=== PATIENT | female | born 1980 | race Caucasian/White ===

== ENCOUNTER 2017-07-10 22:21 | Emergency (ER) | payer OTHER ==
[~2017-07-10] VITALS: Ht 167.6 cm; Wt 73.2 kg
[~2017-07-10 22:21] MED LIST: ZLF50 PO
[2017-07-10 22:25] VITALS: TEMP 36.8; Ht 167.6 cm; Wt 73.2 kg
[2017-07-10] MEDS ORDERED: ONDANSETRON INJ 2 MG/ML 2 ML VIAL IV STA (23:00)
[2017-07-10] MEDS ORDERED: SODIUM CHLORIDE 0.9% 1000ML 1,000 ML IV ONE (23:00)
[2017-07-10] MEDS ORDERED: SERT-234 PO (23:07)
[2017-07-10] MEDS ORDERED: MELO15TA4 PO (23:07)
[2017-07-10] MEDS ORDERED: QUET1TAB37 PO (23:07)
[2017-07-10] MEDS ORDERED: HYDR25CA PO (23:07)
[2017-07-10 23:21] LABS: URINE APPEARANCE TURBID (CLEAR); URINE BILIRUBIN NEG (NEG); URINE COLOR DK YELLOW; URINE EPITHELIAL CELL AUTO >30 /lpf (0-5); URINE NITRITE NEG (NEG); URINE PH 7.5 (4.5-7.5); URINE SPECIFIC GRAVITY 1.032 (1.000-1.030); UROBILINOGEN NEG (NEG); ZZUR CULT IF INDIC CLEAN CATCH YES
[2017-07-10 23:28] LABS: MANUAL MICROSCOPIC REQUIRED? NO; REVIEW REQ? YES; SULFASALICYLIC ACID POS (NEG)
[2017-07-10] MEDS ORDERED: CEFTRIAXONE SOD INJ 1 GM ADDVIAL IV STA (23:30)
[2017-07-10 23:40] LABS: BASO % 0.1 %; BASO ABS # 0.01 K/uL (0-0.2); COMPLETE YES; EOS % 0.1 %; HEMATOCRIT 39.5 % (37-47); IG% 0.1 %; LYMPH % 19.1 %; LYMPH ABS # 2.02 K/uL (1.2-3.4); MEAN CELL VOLUME 92.9 fL (80-100); MEAN CORPUSCULAR HEMOGLOBIN 31.1 pg (25-34); MEAN CORPUSCULAR HGB CONC 33.4 g/dl (32-36); MEAN PLATELET VOLUME 9.9 fL (7.4-10.4); NEUT % 71.6 %; PLATELET COUNT 319 K/uL (130-400); RED BLOOD COUNT 4.25 M/uL (4.2-5.4); WHITE BLOOD COUNT 10.59 K/uL (4.8-10.8)
[2017-07-10 23:56] LABS: BUN/CREATININE RATIO 12.9 (10-20); CALCIUM 9.1 mg/dl (8.5-10.1); CREATININE 0.75 mg/dl (0.60-1.20); POTASSIUM 3.1 mmol/L (3.5-5.1)
[2017-07-10 23:57] LABS: BENZODIAZEPINE, URINE NEG (NEG); COCAINE,URINE POS (NEG); PHENCYCLIDINE, URINE NEG (NEG)
[2017-07-10 23:59] LABS: ALB/GLOB RATIO 0.9 (0.9-2)
[2017-07-11] MEDS ORDERED: CEFD300C2 PO (00:26)
[2017-07-11 00:42] VITALS: BP 108/70; PULSE 76; O2SAT 96
--- NOTE | 2017-07-11 02:11 | EMERGENCY ROOM VISIT NOTE ---
History First contact with patient: 22:48 Chief Complaint: ABDOMINAL PAIN Stated Complaint: ABD PAIN Nursing Triage Summary: refer to triage note History of Present Illness The patient is a 36 year old female who presents to the Emergency Room with complaints of generalized abdominal pain and dysuria for the past one to 2 weeks. The patient states that she was recently treated for a urinary tract infection and completed her antibiotics for 5 days ago. She states that she felt well after the antibiotics and for 2 days following. Afterwards she began having return of her symptoms. The patient rates her overall discomfort 7/10. She has not had fever or chills. She is able to eat and drink as normal, although she does have nausea without vomiting. The patient is currently staying with a friend, as she is without a primary residence of her own. The patient has a history of polypharmacy drug abuse. Review of Systems More than 10 systems were reviewed and otherwise negative with the exception of history of present illness. Past Medical/Surgical History Medical Problems: (1) Benzodiazepine abuse (2) Cannabis abuse (3) Cocaine abuse (4) Kidney stones (5) Methamphetamine abuse (6) Migraines (7) Nicotine abuse (8) Opiate abuse, continuous (9) Past Psych Meds (10) Tubal ligation (11) UTI Surgical Problems: (1) History of open heart surgery Family History Cancer Kidney disease Social History Smoking Status: Current Every Day Smoker Alcohol Use: none Drug Use: cocaine, marijuana, other (methamphetamine abuse) Marital Status: single Occupation Status: employed Current/Historical Medications Scheduled Cefdinir (Omnicef), 300 MG PO Q12H Meloxicam (Mobic), 15 MG PO DAILY Quetiapine Fumarate (Seroquel), 300 MG PO DAILY Sertraline (Zoloft), 100 MG PO DAILY Scheduled PRN Hydroxyzine Pamoate (Vistaril), 25 MG PO TID PRN for Anxiety Allergies Coded Allergies: Morphine (Verified Allergy, Mild, HIVES, 07/10/17) Tramadol (Verified Allergy, Mild, NAUSEA/VOMITING, 07/10/17) Physical Exam Vital Signs Date Time Temp Pulse Resp B/P (MAP) Pulse Ox O2 Delivery O2 Flow Rate FiO2 07/11/17 00:42 76 18 108/70 96 07/10/17 23:50 72 18 115/71 95 Room Air 07/10/17 22:37 64 07/10/17 22:25 36.8 62 18 100/60 99 Room Air Pain Rating (0-10): 6.0 Physical Exam VITALS: Vitals are noted on the nurse's note and reviewed by myself. Vital signs stable. GENERAL: Well-developed, well-nourished, white female, who is in no acute distress and resting comfortably. Patient is cooperative with the examination. HEART: Regular rate and rhythm without murmurs gallops or rubs. LUNGS: Clear to auscultation bilaterally without wheezes, rales or rhonchi. No retractions or accessory muscle use. ABDOMEN: Positive normal bowel sounds x 4. Soft, nontender, without masses or organomegaly. No guarding or rebound tenderness. MUSCULOSKELETAL: No muscle atrophy, erythema, or edema noted. Full range of motion without joint tenderness in all extremities. Medical Decision & Procedures Laboratory Results 07/10/17 23:20 Red Blood Count 4.25, Mean Corpuscular Volume 92.9, Mean Corpuscular Hemoglobin 31.1, Mean Corpuscular Hemoglobin Concent 33.4, Mean Platelet Volume 9.9, Neutrophils (%) (Auto) 71.6, Lymphocytes (%) (Auto) 19.1, Monocytes (%) (Auto) 9.0, Eosinophils (%) (Auto) 0.1, Basophils (%) (Auto) 0.1, Neutrophils # (Auto) 7.59, Lymphocytes # (Auto) 2.02, Monocytes # (Auto) 0.95, Eosinophils # (Auto) 0.01, Basophils # (Auto) 0.01 07/10/17 23:20 Test 07/10/17 23:00 07/10/17 23:20 Urine Color DK YELLOW Urine Appearance TURBID (CLEAR) Urine pH 7.5 (4.5-7.5) Urine Specific [place] 1.032 (1.000-1.030) Urine Protein 2+ (NEG) Urine Glucose (UA) NEG (NEG) Urine Ketones 4+ (NEG) Urine Occult Blood 2+ (NEG) Urine Nitrite NEG (NEG) Urine Bilirubin NEG (NEG) Urine Urobilinogen NEG (NEG) Urine Leukocyte Esterase LARGE (NEG) Urine WBC (Auto) >30 /hpf (0-5) Urine RBC (Auto) 10-30 /hpf (0-4) Urine Hyaline Casts (Auto) 5-10 /lpf (0-5) Urine Epithelial Cells (Auto) >30 /lpf (0-5) Urine Bacteria (Auto) 2+ (NEG) Urine Pathogenic Casts /lpf (0) Urine Test NEG (NEG) Urine Opiates Screen NEG (NEG) Urine Methadone, Qualitative NEG (NEG) Urine Barbiturates NEG (NEG) Urine Phencyclidine (PCP) Level NEG (NEG) Ur Amphetamine/Methamphetamine POS (NEG) MDMA (Ecstasy) Screen NEG (NEG) Urine Benzodiazepines Screen NEG (NEG) Urine Cocaine Metabolite POS (NEG) Urine Marijuana (THC) POS (NEG) White Blood Count 10.59 K/uL (4.8-10.8) Red Blood Count 4.25 M/uL (4.2-5.4) Hemoglobin 13.2 g/dL (12.0-16.0) Hematocrit 39.5 % (37-47) Mean Corpuscular Volume 92.9 fL (80-100) Mean Corpuscular Hemoglobin 31.1 pg (25-34) Mean Corpuscular Hemoglobin Concent 33.4 g/dl (32-36) Platelet Count 319 K/uL (130-400) Mean Platelet Volume 9.9 fL (7.4-10.4) Neutrophils (%) (Auto) 71.6 % Lymphocytes (%) (Auto) 19.1 % Monocytes (%) (Auto) 9.0 % Eosinophils (%) (Auto) 0.1 % Basophils (%) (Auto) 0.1 % Neutrophils # (Auto) 7.59 K/uL (1.4-6.5) Lymphocytes # (Auto) 2.02 K/uL (1.2-3.4) Monocytes # (Auto) 0.95 K/uL (0.11-0.59) Eosinophils # (Auto) 0.01 K/uL (0-0.5) Basophils # (Auto) 0.01 K/uL (0-0.2) RDW Standard Deviation 45.0 fL (36.4-46.3) RDW Coefficient of Variation 13.2 % (11.5-14.5) Immature Granulocyte % (Auto) 0.1 % Immature Granulocyte # (Auto) 0.01 K/uL (0.00-0.02) Anion Gap 11.0 mmol/L (3-11) Est Creatinine Clear Calc Drug Dose 106.1 ml/min Estimated GFR () 118.9 Estimated GFR (Non- 102.5 BUN/Creatinine Ratio 12.9 (10-20) Calcium Level 9.1 mg/dl (8.5-10.1) Total Bilirubin 0.3 mg/dl (0.2-1) Aspartate Amino Transf (AST/SGOT) 27 U/L (15-37) Alanine Aminotransferase (ALT/SGPT) 21 U/L (12-78) Alkaline Phosphatase 77 U/L (45-117) Total Protein 8.3 gm/dl (6.4-8.2) Albumin 4.0 gm/dl (3.4-5.0) Globulin 4.3 gm/dl (2.5-4.0) Albumin/Globulin Ratio 0.9 (0.9-2) Medications Administered Medications (Trade) Dose Ordered Sig/Jj Route Start Time Stop Time Status Last Admin Dose Admin Sodium Chloride 1,000 ml @ 999 mls/hr Q1H1M ONCE IV 07/10/17 23:00 07/11/17 00:00 DC 07/10/17 23:36 999 MLS/HR Ondansetron HCl (Zofran Inj) 4 mg NOW STAT IV 07/10/17 23:00 07/10/17 23:02 DC 07/10/17 23:36 4 MG Ceftriaxone Sodium (Rocephin Inj) 1 gm NOW STAT IV 07/10/17 23:30 07/10/17 23:31 DC 07/10/17 23:36 1 GM ED Course Physical exam and history were performed. Nursing notes, EMR, and Medication List were personally reviewed. Patient appears to have dysuria symptoms and evidently some nausea over the past few days. She was recently treated for a UTI. The patient was requesting pain medication from nursing, however I did not feel it was appropriate to provide her medication without further evaluation. IV access was established and labs were obtained. The patient was hydrated with normal saline and given Zofran for comfort. The patient's blood work does not have signs of a significantly elevated white blood cell count, gross anemia, bandemia, or significant electrolyte imbalance. Transaminases are nondiagnostic. Urine is with evidence of infection and the patient was started on Rocephin here in the department. Her drug of abuse screen is positive for methamphetamine, cocaine, and marijuana. I discussed the results with the patient, and feel that she does likely have a recurrent UTI. She is unsure of the previous antibiotic that she was on. Because of this I will give her a course of Omnicef. The patient needs to follow with her primary care physician for further care and management. She is otherwise went back to the ER with any new, worsening, or concerning symptoms. The chart was completed utilizing [employer] Speech Voice Recognition Software. Grammatical errors, random word insertions, pronoun errors, and incomplete sentences are an occasional consequence of this system due to software limitations, ambient noise, and hardware issues. Any formal questions or concerns about the content, text, or information contained within the body of this dictation should be directly addressed to the provider for clarification. . Medical Decision Differential diagnosis: Etiologies such as renal colic, appendicitis, diverticulitis, mesenteric ischemia, aortic pathology, infections, inflammatory bowel disease, PUD, biliary pathology, UTI, as well as others were entertained. Impression Primary Impression: Urinary tract infection Additional Impression: Drug abuse Departure Information Dispostion Home / Self-Care Condition GOOD Prescriptions Cefdinir (OMNICEF) 300 Mg Cap 300 MG PO Q12H for 10 Days, #20 CAP Prov: George Clemens PA-C 07/11/17 Forms Call Back Authorization, HOME CARE DOCUMENTATION FORM, IMPORTANT VISIT INFORMATION Patient Instructions My [facility] Additional Instructions You were seen and evaluated today on an emergency basis only. This is not a substitute for, or an effort to provide, complete comprehensive medical care. It is not possible to recognize and treat all injuries or illnesses in a single emergency department visit. For this reason it is recommended that you followup with your primary care physician for ongoing care and evaluation. Take Omnicef 300 mg twice daily for the next 10 days. You are welcome to return to the emergency department anytime with new, worsening, or concerning symptoms. Problem Qualifiers
[2017-07-13 12:54] LABS: COCAINE, URINE 1550 NG/ML (CUTOFF=100)
== END 2017-07-11 00:46 | disposition home or self-care (01) ==
LOC: EDBD 22:21 → C.EDC 22:22
DX: N39.0 Urinary tract infection, site not specified (principal); F19.10 Other psychoactive substance abuse, uncomplicated; Z87.442 Personal history of urinary calculi; G43.909 Migraine, unspecified, not intractable, without status migrainosus; Z80.9 Family history of malignant neoplasm, unspecified; Z84.1 Family history of disorders of kidney and ureter; F17.210 Nicotine dependence, cigarettes, uncomplicated; Z79.899 Other long term (current) drug therapy